=== PATIENT | male | born 1945 | race Caucasian/White ===

== ENCOUNTER → 2017-01-07 | Outpatient (CLI) | payer OTHER ==
[~2017-01-07] MED LIST: ACET-1138 PO; ASPEC325 PO; ATOR10TA82 PO; RXC5 PO; SPIR25TA PO
[2017-01-07 11:33] LABS: BLOOD UREA NITROGEN 20 mg/dl (7-18); BUN/CREATININE RATIO 17.9 (10-20); CARBON DIOXIDE 31 mmol/L (21-32); CHLORIDE 109 mmol/L (98-107); GLUCOSE 98 mg/dl (70-99); POTASSIUM 4.5 mmol/L (3.5-5.1); SODIUM 143 mmol/L (136-145)
[2017-01-07 11:38] LABS: PROSTATE SPECIFIC ANTIGEN 0.798 ng/ml (0.000-4.000)
== END | disposition home or self-care (01) ==
LOC: C.LABBC 08:10
PROVIDERS: ATTEND Internal Medicine Geriatric Medicine
DX: I10 Essential (primary) hypertension (principal); R35.1 Nocturia

== ENCOUNTER 2017-03-25 18:32 | Inpatient (IN) | payer OTHER ==
[~2017-03-25] VITALS: Ht 180.3 cm; Wt 73.0 kg
[2017-03-25] MEDS ORDERED: HYDROCODONE/ACETAMOPHEN 5/325MG TAB PO ONE (19:00)
[2017-03-25] MEDS ORDERED: ATOR10TA88 PO (19:01)
[2017-03-25] MEDS ORDERED: SPIR25TA PO (19:01)
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
[2017-03-25] MEDS ORDERED: LORAZEPAM 2 MG/ML 1 ML VIAL IV STA (20:44)
[2017-03-25] MEDS ORDERED: MoRPHine SULFATE 4 MG/ML 1 ML CARP IV ONE (20:45)
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
[2017-03-25 21:03] LABS: MEAN CELL VOLUME 88.1 fL (80-100); MEAN CORPUSCULAR HEMOGLOBIN 30.2 pg (25-34); MEAN CORPUSCULAR HGB CONC 34.3 g/dl (32-36); MEAN PLATELET VOLUME 9.5 fL (7.4-10.4); PLATELET COUNT 196 K/uL (130-400); RED BLOOD COUNT 4.77 M/uL (4.7-6.1); WHITE BLOOD COUNT 9.21 K/uL (4.8-10.8)
[2017-03-25 21:20] LABS: BUN/CREATININE RATIO 15.7 (10-20); CALCIUM 9.2 mg/dl (8.5-10.1); CREATININE 1.2 mg/dl (0.60-1.40); PARTIAL THROMBOPLASTIN RATIO 0.9; PROTHROMBIN TIME (PATIENT) 10.9 SECONDS (9.0-12.0)
[2017-03-25 21:23] LABS: ALB/GLOB RATIO 1.2 (0.9-2)
[2017-03-25 21:28] LABS: BASO % 0.1 %; BASO ABS # 0.01 K/uL (0-0.2); COMPLETE YES; EOS % 0.2 %; IG% 0.1 %; LYMPH % 6.2 %; LYMPH ABS # 0.57 K/uL (1.2-3.4); MONO % 11.4 %
--- NOTE | 2017-03-25 21:36 | EMERGENCY ROOM VISIT NOTE ---
ED Visit Note First contact with patient: 18:44 I did evaluate and examine this patient myself. I did guide management for the patient. I agree with the APC's assessment as discussed. Please see the APC's dictation for further details. I did independently review the x-rays and blood work. The patient has a significant fracture to his tibia. I did discuss the case with orthopedics. He was hospitalized for operative repair tomorrow.
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
[2017-03-25] MEDS ORDERED: MoRPHine SULFATE 2 MG/ML CARP IV PRN (22:15)
[2017-03-25] MEDS ORDERED: ZOLPIDEM TARTRATE 5 MG TAB PO PRN (22:15)
[2017-03-25] MEDS ORDERED: ONDANSETRON INJ 2 MG/ML 2 ML VIAL IV PRN (22:15)
[2017-03-25 22:50] VITALS: BP 146/81; PULSE 60; TEMP 36.5; O2SAT 95; Ht 180.3 cm; Wt 73.0 kg
[2017-03-25] MEDS: OXYCODONE/ACETAMINOPHEN 5-325 TAB PO PRN (23:50)
[2017-03-26] VITALS (7 sets, daily range): BP systolic 114–137; BP diastolic 63–82; PULSE 56–62; TEMP 36.3–36.7; O2SAT 95–99
[2017-03-26 00:37] LABS: HEMATOCRIT 39.1 % (42-52); MEAN CELL VOLUME 88.7 fL (80-100); MEAN CORPUSCULAR HEMOGLOBIN 30.8 pg (25-34); MEAN CORPUSCULAR HGB CONC 34.8 g/dl (32-36); MEAN PLATELET VOLUME 9.9 fL (7.4-10.4); PLATELET COUNT 166 K/uL (130-400); RED BLOOD COUNT 4.41 M/uL (4.7-6.1); WHITE BLOOD COUNT 7.78 K/uL (4.8-10.8)
[2017-03-26 00:52] LABS: PROTHROMBIN TIME (PATIENT) 10.8 SECONDS (9.0-12.0)
[2017-03-26 00:56] LABS: BUN/CREATININE RATIO 15.4 (10-20); CALCIUM 9.1 mg/dl (8.5-10.1); CREATININE 1.2 mg/dl (0.60-1.40)
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
[2017-03-26] MEDS: D5W AND 1/2NSS 1,000 ML IV SCH ×2 (00:59→11:32)
[2017-03-26] MEDS: OXYCODONE/ACETAMINOPHEN 5-325 TAB PO PRN (03:54)
[2017-03-26] MEDS ORDERED: CEFAZOLIN 1000MG/55 ML D5W 55 ML IV SCH (06:00)
--- NOTE | 2017-03-26 07:37 | DIAGNOSTIC IMAGING REPORT ---
TWO VIEW CHEST CLINICAL HISTORY: Preoperative examination. FINDINGS: AP and lateral chest radiographs are obtained. No prior studies are available for comparison at the time of dictation. The heart is top normal for projection. There is mild atherosclerotic calcification of the thoracic aorta. Findings suggest emphysema. Nonspecific interstitial thickening is observed. No airspace consolidation, pleural effusion, or pneumothorax is seen. Apical scarring is observed. The skeletal structures are osteopenic. There are healed right-sided rib fractures. A mild compression deformity is noted in the midthoracic spine. IMPRESSION: Question obstructive physiology. There is no acute cardiopulmonary abnormality. Electronically signed by: Dionte Edge M.D. 03/26/2017 7:35 AM Dictated Date/Time: 03/26/2017 7:34 AM
[2017-03-26] MEDS: SPIRONOLACTONE 25 MG TAB PO SCH (08:29)
[2017-03-26 08:41] LABS: URINE APPEARANCE CLEAR (CLEAR); URINE BILIRUBIN NEG (NEG); URINE COLOR YELLOW; URINE NITRITE NEG (NEG); URINE PH 5.5 (4.5-7.5); URINE SPECIFIC GRAVITY 1.018 (1.000-1.030); UROBILINOGEN NEG (NEG)
[2017-03-26 08:47] LABS: MANUAL MICROSCOPIC REQUIRED? NO; REVIEW REQ? NO
[2017-03-26] MEDS ORDERED: ATORVASTATIN 10 MG TAB PO SCH (09:00)
[2017-03-26] MEDS ORDERED: ALUMINUM/MAGNESIUM/SIMETH (MAALOX MAX) 30 ML UDC PO PRN ×2 (11:15→17:15)
[2017-03-26] MEDS ORDERED: POLYETHYLENE (MIRALAX) 17 GM PACK PO PRN (11:15)
[2017-03-26] MEDS ORDERED: ACETAMINOPHEN 325 MG TAB PO PRN (11:15)
[2017-03-26] MEDS ORDERED: MAGNESIUM HYDROXIDE SUSP 30 ML UDC PO PRN ×2 (11:15→17:15)
--- NOTE | 2017-03-26 11:17 | Medical Consult ---
Consultation Date of Consultation: Mar 26, 2017. Attending Physician: Peña Grant M.D. Reason for Consultation: Medical management History of Present Illness This is a 71 y/o male with a history of HTN and HLD who presents s/p left tibia/ fibula fracture on 03/25 for medical management. Patient reports feeling relatively well. He states that his left lower leg pain is tolerable at rest. He currently rates his discomfort as a 4/10 aching pain in the medial left lower leg that is worse with movement and pressure. He also notes intermittent leg cramping. He denies any numbness or tingling. The patient is being kept NPO for surgery later this afternoon. The patient denies fevers, chills, sweats , chest pain, palpitations, claudication, cough, wheezing, shortness of breath, nausea, vomiting, abdominal pain, dysuria, hematuria, urinary retention, paralysis, weakness, numbness and tingling. Past Medical/Surgical History HTN HLD Family History Coronary artery disease Diabetes mellitus Hypertension Pancreatic cancer Social History Smoking Status: Never Smoker Smokeless Tobacco Use: No Alcohol Use: heavy (10 beers/week) Drug Use: none Marital Status: Housing Status: lives with significant other Occupation Status: retired Allergies Coded Allergies: No Known Allergies (Verified , 11/10/02) Current Inpatient Medications Current Inpatient Medications Medications (Trade) Dose Ordered Sig/Candelario Route Start Time Stop Time Status Last Admin Dose Admin Oxycodone/ Acetaminophen (Percocet 5-325mg Tab) `1-2 TABS FOR PAIN `1 TAB... Q4H PRN PO 03/25/17 22:15 04/08/17 22:14 03/26/17 03:54 2 TAB Zolpidem Tartrate (Ambien Tab) 5 mg HSZ PRN PO 03/25/17 22:15 04/24/17 22:14 Ondansetron HCl (Zofran Inj) 4 mg Q6H PRN IV 03/25/17 22:15 04/24/17 22:14 Dextrose/Sodium Chloride 1,000 ml @ 75 mls/hr [id number] IV 03/25/17 22:11 04/24/17 22:10 03/26/17 00:59 75 MLS/HR Cefazolin Sodium 55 ml @ 100 mls/hr PREOP IV 03/26/17 06:00 03/26/17 15:00 Morphine Sulfate (MoRPHine SULFATE INJ) 2 mg [id number] PRN IV 03/25/17 22:15 04/08/17 22:14 03/26/17 09:51 2 MG Atorvastatin Calcium (Lipitor Tab) 10 mg DAILY PO 03/26/17 09:00 04/25/17 08:59 Spironolactone (Aldactone Tab) 25 mg DAILY PO 03/26/17 09:00 04/25/17 08:59 Review of Systems See HPI for pertinent positives and negatives. All other systems reviewed and negative. Physical Exam Date Time Temp Pulse Resp B/P (MAP) Pulse Ox O2 Delivery O2 Flow Rate FiO2 03/26/17 07:17 36.6 56 16 114/70 (85) 95 Room Air 03/26/17 07:05 Room Air 03/25/17 22:50 95 Room Air 03/25/17 22:50 36.5 60 16 146/81 95 Room Air 03/25/17 22:00 58 20 131/56 97 Room Air 03/25/17 21:30 55 16 133/77 97 Room Air 03/25/17 21:01 52 16 96/47 96 Room Air 03/25/17 18:40 36.7 68 16 146/85 96 Room Air General Appearance: WD/WN, no apparent distress Head: normocephalic, atraumatic Eyes: normal inspection, PERRL, EOMI ENT: normal ENT inspection, hearing grossly normal, pharynx normal Neck: supple, no JVD, trachea midline Respiratory/Chest: lungs clear, normal breath sounds, no respiratory distress Cardiovascular: regular rate, rhythm, no gallop, no murmur Abdomen/GI: normal bowel sounds, non tender, soft Extremities/Musculoskelatal: normal capillary refill, + pertinent finding ( left lower leg TTP. Leg splinted, wrapped in ricky bandage) Neurologic/Psych: alert, normal mood/affect, oriented x 3 Skin: normal color, warm/dry, no rash Laboratory Results Last 24 Hours Test 03/25/17 20:50 03/26/17 00:00 03/26/17 08:20 White Blood Count 9.21 K/uL 7.78 K/uL Red Blood Count 4.77 M/uL 4.41 M/uL Hemoglobin 14.4 g/dL 13.6 g/dL Hematocrit 42.0 % 39.1 % Mean Corpuscular Volume 88.1 fL 88.7 fL Mean Corpuscular Hemoglobin 30.2 pg 30.8 pg Mean Corpuscular Hemoglobin Concent 34.3 g/dl 34.8 g/dl Platelet Count 196 K/uL 166 K/uL Mean Platelet Volume 9.5 fL 9.9 fL Neutrophils (%) (Auto) 82.0 % Lymphocytes (%) (Auto) 6.2 % Monocytes (%) (Auto) 11.4 % Eosinophils (%) (Auto) 0.2 % Basophils (%) (Auto) 0.1 % Neutrophils # (Auto) 7.55 K/uL Lymphocytes # (Auto) 0.57 K/uL Monocytes # (Auto) 1.05 K/uL Eosinophils # (Auto) 0.02 K/uL Basophils # (Auto) 0.01 K/uL RDW Standard Deviation 40.0 fL 40.6 fL RDW Coefficient of Variation 12.5 % 12.5 % Immature Granulocyte % (Auto) 0.1 % Immature Granulocyte # (Auto) 0.01 K/uL Prothrombin Time 10.9 SECONDS 10.8 SECONDS Prothromb Time International Ratio 1.0 1.0 Activated Partial Thromboplast Time 23.8 SECONDS Partial Thromboplastin Ratio 0.9 Sodium Level 138 mmol/L 138 mmol/L Potassium Level 4.0 mmol/L 4.0 mmol/L Chloride Level 106 mmol/L 103 mmol/L Carbon Dioxide Level 25 mmol/L 30 mmol/L Anion Gap 7.0 mmol/L 5.0 mmol/L Blood Urea Nitrogen 19 mg/dl 19 mg/dl Creatinine 1.20 mg/dl 1.20 mg/dl Est Creatinine Clear Calc Drug Dose 59.1 ml/min 59.1 ml/min Estimated GFR () 70.6 70.6 Estimated GFR (Non- 60.9 60.9 BUN/Creatinine Ratio 15.7 15.4 Random Glucose 111 mg/dl 131 mg/dl Calcium Level 9.2 mg/dl 9.1 mg/dl Total Bilirubin 0.6 mg/dl Aspartate Amino Transf (AST/SGOT) 33 U/L Alanine Aminotransferase (ALT/SGPT) 52 U/L Alkaline Phosphatase 62 U/L Total Protein 7.4 gm/dl Albumin 4.0 gm/dl Globulin 3.4 gm/dl Albumin/Globulin Ratio 1.2 Hepatitis C Antibody Screen NEG Urine Color YELLOW Urine Appearance CLEAR Urine pH 5.5 Urine Specific [place] 1.018 Urine Protein NEG Urine Glucose (UA) NEG Urine Ketones NEG Urine Occult Blood NEG Urine Nitrite NEG Urine Bilirubin NEG Urine Urobilinogen NEG Urine Leukocyte Esterase NEG Assessment & Plan 71 y/o male with a history of HTN and HLD who presents s/p left tibia/fibula fracture on 03/25 for medical management. -Scheduled for ORIF later today, currently NPO -EKG reviewed, 59 bpm, sinus bradycardia -CXR reviewed, no acute findings -Pt acceptable risk for surgery -Pain management, DVT prophylaxis, and PT/OT as per primary team HTN--stable -Continue spironolactone 25 mg PO qd HLD -Continue atorvastatin 10 mg PO qd GI prophylaxis -Maalox Max 15 mL PO q4h prn dyspepsia -Milk of magnesia 30 mL PO q6h prn constipation -Miralax 17 gm PO qd prn constipation -Zofran 4 mg IV q6h prn nausea Code Status -Level I, FULL RESUSCITATION STATUS Thank you for this consultation. We will continue to follow. I agree with PA assessment and plan and have seen and examined pt myself Resting comfortably in bed Noted sinus bradycardia Acceptable risk for ORIF HTN controlled with spirnolactone Pain controlled Further management per primary team
--- NOTE | 2017-03-26 11:42 | History & Physical Bridge Note ---
H&P Re-Evaluation Bridge Note: I have examined the patient, reviewed the History & Physical and in the interval since the performance of the History & Physical I have noted the following changes of clinical significance: No changes noted
[2017-03-26] MEDS ORDERED: LIDOCAINE HCL 2% 2 ML VIAL (20MG/ML) ONE (12:09)
[2017-03-26] MEDS ORDERED: ONDANSETRON INJ 2 MG/ML 2 ML VIAL ONE (12:09)
[2017-03-26] MEDS ORDERED: DEXAMETHASONE SOD INJ 4 MG/ML VIAL ONE ×2 (12:09→13:24)
[2017-03-26] MEDS ORDERED: PROPOFOL IV EMULSION 10 MG/ML 20 ML VIAL IV ONE ×2 (12:09→14:54)
[2017-03-26] MEDS ORDERED: FENTANYL CITRATE INJ 50 MCG/1 ML 2 ML VIAL ONE (12:10)
[2017-03-26] MEDS ORDERED: MIDAZOLAM HCL 1 MG/ML 2ML VIAL ONE (12:10)
[2017-03-26] MEDS ORDERED: ONDANSETRON INJ 2 MG/ML 2 ML VIAL IV PRN ×4 (12:45→17:15)
[2017-03-26] MEDS ORDERED: PHENYLEPHRINE 100MCG/ML 5ML SYR IV PRN (12:45)
[2017-03-26] MEDS ORDERED: HYDROmorphone INJ 2 MG/ML SYR/VIAL IV PRN (12:45)
[2017-03-26] MEDS ORDERED: ATROPINE SULFATE 0.1 MG/ML 5ML SYR IV PRN ×3 (12:45→16:15)
[2017-03-26] MEDS ORDERED: EpHEDrine SULFATE INJ 50 MG/ML AMP IV PRN ×3 (12:45→16:15)
[2017-03-26] MEDS ORDERED: BUPIVACAINE 0.5 % 5 MG/1 ML PF 10ML VIAL ONE (12:47)
[2017-03-26] MEDS ORDERED: BUPIVACAINE/EPINEPHRINE 0.25% 1:200,000 30 ML VIAL ONE (13:24)
[2017-03-26] MEDS ORDERED: PROMETHAZINE HCL INJ 6.25 MG in SODIUM CHLORIDE 0.9% 50ML 50 ML IV PRN (13:45)
[2017-03-26] MEDS ORDERED: FENTANYL CITRATE INJ 50 MCG/1 ML 2 ML VIAL IV PRN (13:45)
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
[2017-03-26] MEDS ORDERED: OXYCODONE/ACETAMINOPHEN 5-325 TAB PO PRN (17:15)
[2017-03-26] MEDS ORDERED: SOD PHOSPHATE/SOD BIPHOSPHATE ENEMA 132 ML BTL PR PRN (17:15)
[2017-03-26] MEDS ORDERED: ZOLPIDEM TARTRATE 5 MG TAB PO PRN (17:15)
[2017-03-26] MEDS ORDERED: MoRPHine SULFATE 2 MG/ML CARP IV PRN (17:15)
[2017-03-26] MEDS ORDERED: BISACODYL 10 MG SUPP PR PRN (17:15)
[2017-03-26] MEDS ORDERED: METOCLOPRAMIDE HCL INJ 5 MG/ML 2 ML VIAL IV PRN (17:15)
[2017-03-26] MEDS ORDERED: MoRPHine SULFATE 4 MG/ML 1 ML CARP IV PRN (17:30)
[2017-03-26] MEDS ORDERED: MoRPHine SULFATE 10 MG/ML CARP/VIAL IV PRN (17:30)
--- NOTE | 2017-03-26 17:39 | Anesthesiology Progress Note ---
Anesthesia Post Op Note Date & Time Mar 26, 2017 at 17:39 Vital Signs Pain Intensity: 0 Vital Signs Past 12 Hours Date Time Temp Pulse Resp B/P (MAP) Pulse Ox O2 Delivery O2 Flow Rate FiO2 03/26/17 17:30 53 16 121/68 99 Nasal Cannula 2 03/26/17 17:21 36.0 58 16 108/59 96 Nasal Cannula 2 03/26/17 07:17 36.6 56 16 114/70 (85) 95 Room Air 03/26/17 07:05 Room Air Notes Mental Status: alert / awake / arousable, participated in evaluation Pt Amnestic to Procedure: Yes Nausea / Vomiting: adequately controlled Pain: adequately controlled Airway Patency, RR, SpO2: stable & adequate BP & HR: stable & adequate Hydration State: stable & adequate Neuraxial Anesthesia: was administered, sensory block is resolving Anesthetic Complications: no major complications apparent
[2017-03-26] MEDS: D5W AND 1/2NSS + 20MEQ KCL 1,000 ML IV SCH (18:13)
[2017-03-26] MEDS: ACETAMINOPHEN IV 1,000 MG in EMPTY BAG 0 ML IV SCH (18:14)
[2017-03-26] MEDS: KETOROLAC TROMETHAMINE 15 MG/ML VIAL IV. SCH ×2 (18:14→23:33)
--- NOTE | 2017-03-26 18:14 | DIAGNOSTIC IMAGING REPORT ---
LEFT TIBIA/FIBULA 2 VIEWS ROUTINE CLINICAL HISTORY: Postoperative evaluation. COMPARISON: Left tibia and fibular radiograph March 25, 2017. FINDINGS: Interval placement of a plate and screws fixating the distal left tibial fracture is noted. Fracture alignment has improved and is now near anatomic. A proximal shaft left fibular fracture is noted as well as a fracture of the distal left fibula. There are no unexpected radiopaque foreign bodies. Expected postoperative findings are noted. IMPRESSION: Expected findings following left tibial internal fixation. Electronically signed by: Noble Hillman M.D. 03/26/2017 6:13 PM Dictated Date/Time: 03/26/2017 6:11 PM
--- NOTE | 2017-03-26 20:33 | DIAGNOSTIC IMAGING REPORT ---
INTRAOPERATIVE FLUOROSCOPIC IMAGES OF THE LEFT TIBIA AND FIBULA CLINICAL HISTORY: Open reduction internal fixation. COMPARISON STUDY: Left tibia and fibula radiographs March 25, 2017. Fluoroscopy time: 1 minute and 36 seconds. FINDINGS: 4 fluoroscopic images demonstrate placement of a left tibial plate and screws which fixate the tibial fracture. Fracture alignment has significantly improved and is near anatomic. The left fibular fractures shown on prior radiographs are not well visualized on this exam due to technique. IMPRESSION: Expected findings following left tibial internal fixation. Electronically signed by: Noble Hillman M.D. 03/26/2017 8:31 PM Dictated Date/Time: 03/26/2017 8:30 PM
[2017-03-26] MEDS: ASPIRIN 325 MG ECTAB PO SCH (20:50)
[2017-03-26] MEDS ORDERED: CEFAZOLIN SOD 1000MG/55 ML D5W IV SCH (22:00)
[2017-03-26] MEDS: CEFAZOLIN IV 1,000 MG in DEXTROSE 5% 50ML 50 ML IV SCH (23:32)
[2017-03-27] VITALS (7 sets, daily range): BP systolic 113–135; BP diastolic 66–76; PULSE 56–98; TEMP 36.5–36.7; O2SAT 78–98
[2017-03-27] MEDS: ACETAMINOPHEN IV 1,000 MG in EMPTY BAG 0 ML IV SCH ×2 (02:31→10:59)
[2017-03-27] MEDS: D5W AND 1/2NSS + 20MEQ KCL 1,000 ML IV SCH (03:28)
[2017-03-27] MEDS: KETOROLAC TROMETHAMINE 15 MG/ML VIAL IV. SCH ×2 (05:46→12:47)
[2017-03-27 05:56] LABS: HEMATOCRIT 34.4 % (42-52); MEAN CELL VOLUME 90.3 fL (80-100); MEAN CORPUSCULAR HGB CONC 34.3 g/dl (32-36); MEAN PLATELET VOLUME 10.2 fL (7.4-10.4); PLATELET COUNT 139 K/uL (130-400); RED BLOOD COUNT 3.81 M/uL (4.7-6.1); WHITE BLOOD COUNT 7.75 K/uL (4.8-10.8)
[2017-03-27 06:31] LABS: CALCIUM 8.6 mg/dl (8.5-10.1); CREATININE 1.1 mg/dl (0.60-1.40); POTASSIUM 4.5 mmol/L (3.5-5.1)
[2017-03-27] MEDS: CEFAZOLIN IV 1,000 MG in DEXTROSE 5% 50ML 50 ML IV SCH (08:00)
[2017-03-27] MEDS: ASPIRIN 325 MG ECTAB PO SCH (08:02)
[2017-03-27] MEDS: SPIRONOLACTONE 25 MG TAB PO SCH (08:03)
[2017-03-27] MEDS ORDERED: NURSING VERBAL MED ORDER ONE (08:15)
--- NOTE | 2017-03-27 08:19 | Orthopedic Progress Note ---
Orthopedic Progress Note Date of Service Mar 27, 2017. Subjective Post OP Day: 1 Reports: feeling well Objective N/V intact, splint C/D/I, toes mobile Date Time Temp Pulse Resp B/P (MAP) Pulse Ox O2 Delivery O2 Flow Rate FiO2 03/27/17 07:18 36.7 57 16 134/73 (93) 97 Room Air 03/27/17 04:10 36.6 56 16 117/69 (85) 97 Room Air 03/26/17 23:30 Room Air 03/26/17 23:10 36.7 62 16 126/75 (92) 95 Room Air 03/26/17 21:13 36.6 60 17 129/82 (98) 96 Room Air 03/26/17 19:55 36.5 59 16 137/77 (97) 99 Nasal Cannula 3.0 03/26/17 19:10 36.6 57 16 119/77 (91) 98 Nasal Cannula 2.0 03/26/17 18:30 36.6 16 127/77 (94) 98 Room Air 03/26/17 18:00 36.3 56 16 117/63 (81) 97 Room Air 03/26/17 18:00 Nasal Cannula 2.0 03/26/17 17:50 36.1 63 16 132/68 99 Nasal Cannula 2 03/26/17 17:40 57 16 117/67 99 Nasal Cannula 2 03/26/17 17:30 53 16 121/68 99 Nasal Cannula 2 03/26/17 17:21 36.0 58 16 108/59 96 Nasal Cannula 2 Laboratory Results 24 Hours: Test 03/27/17 05:31 Hematocrit 34.4 % Hemoglobin 11.8 g/dL Assessment & Plan Assessment: 71 yo male stable POD #1 s/p ORIF left distal tibia Plan: 1. Med management 2. DVT prophylaxis- ASA, AV impulse boots 3. PT/OT- gait training 4. D/C planning- home
[2017-03-27] MEDS ORDERED: ASPEC325 PO (08:22)
[2017-03-27] MEDS ORDERED: ACET-1138 PO (08:22)
[2017-03-27] MEDS ORDERED: RXC5 PO (08:22)
--- NOTE | 2017-03-27 08:25 | Discharge Instructions ---
Discharge Instructions Date of Service Mar 27, 2017. Admission Reason for Admission: Tibia/Fibula Fracture, Shaft Discharge Discharge Diagnosis / Problem: Left tibia fracture Discharge Goals Goal(s): Decrease discomfort, Improve function Activity Recommendations Activity Limitations: as noted below Weightbearing Status: Left non-weightbearing . Instructions / Follow-Up Instructions / Follow-Up Maintain splint until follow-up with MD. Frequent ice and elevation. Nonweightbearing left LE. Current Hospital Diet Patient's current hospital diet: Regular Diet Discharge Diet Recommended Diet: Regular Diet Procedures Procedures Performed: Open Reduction Internal Fixation Left Tibia Fracture, Percutaneous Pending Studies Studies pending at discharge: no Medical Emergencies . Who to Call and When: Medical Emergencies: If at any time you feel your situation is an emergency, please call 911 immediately. . Non-Emergent Contact Non-Emergency issues call your: Surgeon Call Non-Emergent contact if: temperature is above 101.5, your pain is not controlled, wound has increased drainage, wound has increased redness . "Provider Documentation" section prepared by Bossman Cortez PA-C. . VTE Core Measure Inpt VTE Proph given/why not?: Other Anticoagulation (ASA) [place] Drug Monitoring Program Search Results: patient reviewed within database, no issues identified
--- NOTE | 2017-03-27 12:20 | Hospitalist Progress Note ---
Hospitalist Progress Note Date of Service Mar 27, 2017. (Nissa Pantoja ., PA-C) Subjective Pt evaluation today including: conversation w/ patient, conversation w/ family ( at bedside), physical exam, chart review, lab review, review of studies, review of inpatient medication list Pain: Managed with PO meds PO Intake: Tolerating PO diet Voiding: no voiding problems Patient reports feeling relatively well. He does complain of numbness in his left lower extremity but states this has been improving. He was able to participate in physical therapy and did well without much difficulty. The patient is eating a PO diet and urinating without issue. He has been passing gas but denies any bowel movements post op. He has some mild pain in his left ankle that he actually attributes more so the positioning of the ricky bandage and is otherwise feeling well. The patient denies fevers, chills, sweats, chest pain, palpitations, claudication, cough, wheezing, shortness of breath, nausea, vomiting, abdominal pain, dysuria, hematuria, urinary retention, paralysis, weakness. Additional Comments: See HPI for pertinent positives and negatives. All other systems reviewed and negative. (Nissa Pantoja ., PA-C) Objective Vital Signs Date Time Temp Pulse Resp B/P (MAP) Pulse Ox O2 Delivery O2 Flow Rate FiO2 03/27/17 11:15 36.7 59 16 125/68 (87) 98 Room Air 03/27/17 10:19 88 98 03/27/17 08:00 Room Air 03/27/17 07:18 36.7 57 16 134/73 (93) 97 Room Air 03/27/17 04:10 36.6 56 16 117/69 (85) 97 Room Air 03/26/17 23:30 Room Air 03/26/17 23:10 36.7 62 16 126/75 (92) 95 Room Air 03/26/17 21:13 36.6 60 17 129/82 (98) 96 Room Air 03/26/17 19:55 36.5 59 16 137/77 (97) 99 Nasal Cannula 3.0 03/26/17 19:10 36.6 57 16 119/77 (91) 98 Nasal Cannula 2.0 03/26/17 18:30 36.6 16 127/77 (94) 98 Room Air 03/26/17 18:00 36.3 56 16 117/63 (81) 97 Room Air 03/26/17 18:00 Nasal Cannula 2.0 03/26/17 17:50 36.1 63 16 132/68 99 Nasal Cannula 2 03/26/17 17:40 57 16 117/67 99 Nasal Cannula 2 03/26/17 17:30 53 16 121/68 99 Nasal Cannula 2 03/26/17 17:21 36.0 58 16 108/59 96 Nasal Cannula 2 (Nissa Pantoja .KATINAC) Physical Exam Notes: General Appearance: WD/WN, no apparent distress Head: normocephalic, atraumatic Eyes: normal inspection, PERRL, EOMI ENT: normal ENT inspection, hearing grossly normal, pharynx normal Neck: supple, no JVD, trachea midline Respiratory/Chest: lungs clear, normal breath sounds, no respiratory distress Cardiovascular: regular rate, rhythm, no gallop, no murmur Abdomen/GI: normal bowel sounds, non tender, soft Extremities/Musculoskelatal: normal capillary refill, + pertinent finding ( left lower leg splinted and wrapped in ricky bandage. non-tender) Neurologic/Psych: alert, normal mood/affect, oriented x 3 Skin: normal color, warm/dry, no rash (Nissa Pantoja PA-C) Laboratory Results Last 24 Hours Test 03/27/17 05:31 White Blood Count 7.75 K/uL Red Blood Count 3.81 M/uL Hemoglobin 11.8 g/dL Hematocrit 34.4 % Mean Corpuscular Volume 90.3 fL Mean Corpuscular Hemoglobin 31.0 pg Mean Corpuscular Hemoglobin Concent 34.3 g/dl RDW Standard Deviation 42.0 fL RDW Coefficient of Variation 12.7 % Platelet Count 139 K/uL Mean Platelet Volume 10.2 fL Sodium Level 139 mmol/L Potassium Level 4.5 mmol/L Chloride Level 108 mmol/L Carbon Dioxide Level 25 mmol/L Anion Gap 6.0 mmol/L Blood Urea Nitrogen 13 mg/dl Creatinine 1.10 mg/dl Est Creatinine Clear Calc Drug Dose 64.5 ml/min Estimated GFR () 78.4 Estimated GFR (Non- 67.7 BUN/Creatinine Ratio 12.0 Random Glucose 136 mg/dl Calcium Level 8.6 mg/dl (Pantoja, Nissa ., PA-C) Assessment and Plan 71 y/o male with a history of HTN and HLD who presents s/p left tibia/fibula fracture on 03/25 for medical management. -S/p ORIF 03/[address] Hernandez. POD #1 -Pain management, DVT prophylaxis, and PT/OT as per primary team HTN--stable -Continue spironolactone 25 mg PO qd HLD -Continue atorvastatin 10 mg PO qd GI prophylaxis -Maalox Max 15 mL PO q4h prn dyspepsia -Milk of magnesia 30 mL PO q6h prn constipation -Miralax 17 gm PO qd prn constipation -Zofran 4 mg IV q6h prn nausea Code Status -Level I, FULL RESUSCITATION STATUS Pt. is stable from a medical standpoint, we will sign off. Clear for discharge as per primary team. (Nissa Pantoja ., PA-C) I agree with PA assessment and plan and seen and examined pt myself Pain apprporaitely controlled VSS Labs reviewed Pt reports numbness in affected leg, likely from anesthesia No further concerns Medically stable for discharge Sign off at this time, thank you (Maximus Pressley D.O.)
[2017-03-27] MEDS ORDERED: ATORVASTATIN 10 MG TAB PO SCH (21:00)
== END 2017-03-27 15:45 | disposition home or self-care (01) | DRG 494 ==
LOC: C.EDB 18:34 → C.3E 22:22 → ENRESERV 22:28
PROVIDERS: ADMIT Orthopaedic Surgery Sports Medicine; ATTEND Orthopaedic Surgery Sports Medicine
PROC: 0QSH04Z Reposition Left Tibia with Internal Fixation Device, Open Approach (ICD-10-PCS; principal; 2017-03-26 13:00)
DX: S82.302A Unspecified fracture of lower end of left tibia, initial encounter for closed fracture (principal); S00.31XA Abrasion of nose, initial encounter; S50.11XA Contusion of right forearm, initial encounter; V29.9XXA Motorcycle rider (driver) (passenger) injured in unspecified traffic accident, initial encounter; I10 Essential (primary) hypertension; E78.5 Hyperlipidemia, unspecified; Z79.899 Other long term (current) drug therapy; Z82.49 Family history of ischemic heart disease and other diseases of the circulatory system; Z80.8 Family history of malignant neoplasm of other organs or systems; Z83.3 Family history of diabetes mellitus

== ENCOUNTER → 2017-12-30 | Outpatient (CLI) | payer OTHER | END | disposition home or self-care (01) | LOC: C.LABBC 14:22 | PROVIDERS: ATTEND Physician Assistant Medical | DX: R53.83 Other fatigue (principal); R30.0 Dysuria ==

== ENCOUNTER → 2018-01-21 | Outpatient (CLI) | payer OTHER | END | disposition home or self-care (01) | LOC: C.LABBC 14:17 | PROVIDERS: ATTEND Physician Assistant Medical | DX: R39.9 Unspecified symptoms and signs involving the genitourinary system (principal); N39.0 Urinary tract infection, site not specified ==

== ENCOUNTER → 2018-05-07 | Outpatient (CLI) | payer OTHER | END | disposition home or self-care (01) | LOC: C.LABBC 10:42 | PROVIDERS: ATTEND Urology | DX: R97.20 Elevated prostate specific antigen [PSA] (principal) ==